=== PATIENT | male | born 1980 | race Caucasian/White ===

== ENCOUNTER 2016-11-29 23:58 | Inpatient (IN) | payer BC ==
--- NOTE | ~2016-11-29 | HP ---
Unit #: [id number] #: [id number] Patient: ASH BHATIA [id number] [place] [address] [id number] MR#: [id number] NAME: ASH BHATIA. ROOM: P256 Age: 36 Sex: M Admission Date: 11/29/2016 : 1980 Attending Physician: Lv Marinelli M.D. Admitting Physician: Lv Marinelli M.D. Primary Care Physician: Primary Care Physician No HISTORY AND PHYSICAL HISTORY OF PRESENT ILLNESS Ash is a 36-year-old male admitted to [address] [place] [address] on 11/29/2016 for visual hallucinations and suicidal ideation. He also has a history of meth and heroin use and is currently being prescribed Suboxone for treatment. PAST MEDICAL HISTORY None. PAST SURGICAL HISTORY None. SOCIAL HISTORY Smokes 1 pack of cigarettes daily. No alcohol use. Does report a history of heroin and meth use last week. Also, has been prescribed Suboxone. He is currently single and homeless. Occasionally he lives with his parents. FAMILY HISTORY Noncontributory. REVIEW OF SYSTEMS CONSTITUTIONAL: No fever or chills. HEENT: Denies any sore throat, ear pain or runny nose. CARDIOVASCULAR: Denies chest pain, irregular heart rhythm or palpitations. CHEST: Denies shortness of breath or cough. No hemoptysis. GASTROINTESTINAL: Denies nausea, vomiting, diarrhea or chronic constipation. ENDOCRINE: Denies history of increased thirst or urination. No recent significant weight loss or gain. GENITOURINARY: Denies dysuria, frequency, or hematuria. SKIN: Denies any rashes. HEMATOLOGIC: Denies history of increased bleeding or bruising. MUSCULOSKELETAL: Denies any hot, swollen joints. No generalized muscle pain. NEUROLOGIC: Denies problems with vision or speech. No frequent, severe headaches. No numbness, tingling or weakness in any extremities. Denies loss of bladder or bowel control. CURRENT MEDICATIONS Gabapentin. ALLERGIES No known drug allergies. Unit #: [id number] #: [id number] Patient: ASH BHATIA PHYSICAL EXAMINATION GENERAL: Alert, oriented, no acute distress. VITAL SIGNS: Blood pressure 116/65, heart rate 82, temperature 97.8. HEIGHT: 6 feet 2. WEIGHT: 200 pounds. SKIN: Warm, dry. No rashes or lesions, track bright, cuts, etc. HEENT: Normocephalic. TMs not viewed. Oronasal passages clear. Conjunctivae clear. PERRLA. EOM is intact. NECK: No lymphadenopathy or thyromegaly. HEART: Regular rate and rhythm. No murmur, gallop, or rub. LUNGS: Clear to auscultation bilaterally. ABDOMEN: Soft, nontender without palpable masses or hepatosplenomegaly. : Not assessed. EXTREMITIES: No evidence of cyanosis, clubbing, or edema. Moves all extremities independently without obvious deficit. NEUROLOGICAL: Grossly within normal limits. Cranial Nerves: II: Visual ozuna are intact. III, IV AND : Extraocular movements are intact. Pupils are equal, round and reactive to light. V: Facial sensation is grossly normal. VII: Facial movements and expression are normal. VIII: Auditory acuity grossly intact. IX, X: Uvula is midline. Phonation is normal. XI: Patient shrugs shoulders and turns head normally. XII: Tongue protrudes in the midline. Sensory and Motor Function: Sensory and motor sensation is grossly normal. Motor: moves all extremities well. Coordination: Gait is normal. Deep Tendon Reflexes: Intact. IMPRESSION Psychiatric admission. RECOMMENDATIONS PSYCHIATRIC: Per psychiatrist. MEDICAL: No contraindication to participate in this facility's activities. MEDICAL PROGNOSIS Good. MEDICAL CONDITION Stable. Dictated by... Michelle Quinonez TD: 11/30/2016 14:33 JOB #: [id number] Unit #: [id number] #: [id number] Patient: ASH BHATIA HISTORY AND PHYSICAL X ALESHA DUVAL APRN HISTORY AND PHYSICAL
--- NOTE | ~2016-11-29 | PN ---
Unit #: [id number] #: [id number] Patient: ASH BHATIA [id number] [facility] [address] [place] [address] [id number] MR#: [id number] NAME: ASH BHATIA. ROOM: P256 Age: 36 Sex: M Admission Date: 11/29/2016 : 1980 Attending Physician: Lv Marinelli M.D. Admitting Physician: Lv Marinelli M.D. Primary Care Physician: Primary Care Physician Maura CLARKE PROGRESS NOTES DATE OF SERVICE: 12/01/2016 DISCUSSION Ash Bhatia is a 36-year-old male, seen on 12/01/2016. The patient interviewed, chart reviewed, and obtained information from nursing staff. The patient is compliant and cooperative. The patient denied any hallucination or any side effects from medication and making progress, but still isolative and guarded. REVIEW OF SYSTEMS Complete review of systems unremarkable. MENTAL STATUS EXAMINATION General appearance, the patient is tall, well built. Attention span and concentration, fair. Oriented in place and person. Mood and affect were labile. Speech, regular rate. Thought process, goal directed. The patient denied any thoughts of harming self or others or any psychotic symptom. Recent and remote memory, poor. Insight and judgment, poor. DIAGNOSES Mood disorder, not otherwise specified. Methamphetamine abuse, moderate. ASSESSMENT AND PLAN Advised to continue with current medication and therapeutic protocol. We will monitor response to medication and make further adjustment of medication if needed. Dictated by... Sasha Lassiter/trina TD: 12/03/2016 06:12 JOB #: [id number] Unit #: [id number] #: [id number] Patient: ASH BHATIA [facility] PROGRESS NOTES X Lv Marinelli MD PROGRESS NOTE
--- NOTE | ~2016-11-29 | PA ---
Unit #: [id number] #: [id number] Patient: RAMONA BHATIA [id number] [place] [address] [id number] MR#: [id number] NAME: RAMONA BHATIA. ROOM: P256 Age: 36 Sex: M Admission Date: 11/29/2016 : 1980 Date of Assessment: 11/29/2016 Attending Physician: Lv Marinelli M.D. Admitting Physician: Lv Marinelli M.D. Primary Care Physician: Primary Care Physician No PSYCHIATRIC ASSESSMENT DATE OF SERVICE 11/29/2016. INFORMANT The patient reliability, fair; chart reliability, good. CHIEF COMPLAINT Methamphetamine use and paranoia. HISTORY OF PRESENT ILLNESS Mr. Aleman is a 36-year-old male, seen on 11/29/2016. The patient was compliant, cooperative, able to answer questions appropriately. The patient reported that he was feeling sad, depressed. The patient admitted using meth and opioids. The patient presented with suicidal ideation with a plan to take an overdose. The patient denied any homicidal ideation. Reported auditory hallucination, paranoia, anxiety. The patient reported last use of meth was a week ago. The patient reports that he is on Suboxone. The patient also has a history of substance abuse such as using opioids. The patient reported feel like losing his mind, feeling of sad and depressed, needing inpatient admission at this time for psychiatric stabilization. PAST PSYCHIATRIC HISTORY Remarkable for history of inpatient treatment in [place] in 2012. FAMILY HISTORY/SOCIAL HISTORY The patient's family psychiatric illness is unknown at this time. No known history of any abuse. MEDICAL HISTORY Unremarkable for any chronic medical illness. Musculoskeletal; muscle strength and tone, no atrophy or abnormal movement. Gait normal. MEDICATION HISTORY None. ALLERGIES No known drug allergies. SUBSTANCE ABUSE HISTORY The patient reported alcohol use, age of onset 14; marijuana, age of onset 14; crack cocaine, age of onset 18; LSD, age of onset 15; opioid, age of onset 28; amphetamine, age of onset 32. The patient reported no history Unit #: [id number] #: [id number] Patient: RAMONA BHATIA of any blackout, HIV, hepatitis, but history of withdrawal symptoms, history of IV drug use. The patient reported chills, sweats, muscle cramping, runny nose, irritability, restlessness, depressed mood, and tremors. REVIEW OF SYSTEMS Complete review of systems unremarkable. MENTAL STATUS EXAMINATION CONSTITUTIONAL: Measurement of vital signs; temperature 97.4, pulse 84, respirations 18, blood pressure 130/89, height 6 feet 2 inches, and weight 200 pounds. GENERAL APPEARANCE: The patient dressed casually. The patient did not show any facial deformity. MUSCULOSKELETAL: Please see above. PSYCHIATRIC EXAMINATION Description of speech; regular rate. Thought process coherent. Description of thought process, goal directed. Description of association, intact. Description of abnormal psychotic thinking; the patient denied any hallucination or delusions, but reported at the time of admission mood lability. Denied any suicidal or homicidal ideation. Description of the patient's judgment, concerning everyday activity, poor. Social situation, poor. Concerning psychiatric condition, poor. Complete mental status examination; oriented in time, place, and person. Recent and remote memory, fair. Attention span and concentration, fair. Language, able to name object, repeat phrases. Fund of knowledge, aware of current event, passive vocabulary intact. Mood and affect, sad and dysphoric. Insight and judgment, fair to poor. ASSETS AND LIABILITIES Assets, the patient is articulate and able to take care of his ADL. Liability; history of substance abuse. ADMITTING DIAGNOSES Psychiatric: Mood disorder, not otherwise specified, F32.9; methamphetamine use disorder, moderate to severe F15.20; opioid use disorder, severe, F11.20. Secondary diagnosis: Deferred. Medical diagnosis: None. Stressors: Psychosocial stressors. PSYCHIATRIC PLAN AND TREATMENT GOAL AND DISCHARGE PLAN 1. Advised to admit the patient on the inpatient unit. Provide safe, supportive, and structured environment. 2. Ordered labs; CBC, CMP, UA, and UDS. 3. The patient was started on detox protocol and detox monitoring. Monitor for self-harm. Treatment goal; to attain euthymic mood, gain insight into his problem, and learn coping skills. Discharge plan; plan to stabilize the patient and consider followup in outpatient program. ESTIMATED LENGTH OF STAY 5 to 7 days. Unit #: [id number] #: [id number] Patient: RAMONA BHATIA Dictated by... Sasha Lassiter/trina TD: 12/02/2016 08:41 JOB #: [id number] PSYCHIATRIC ASSESSMENT X Lv Marinelli MD PSYCHIATRIC ASSESSMENT
--- NOTE | ~2016-11-29 | DS ---
Unit #: [id number] #: [id number] Patient: RAMONA BHATIA [id number] [facility] [address] [place] [address] [id number] MR#: [id number] NAME: RAMONA BHATIA. ROOM: P256 Age: 36 Sex: M Admission Date: 11/29/2016 : 1980 Discharge Date: 12/02/2016 Attending Physician: Lv Marinelli M.D. Primary Care Physician: Primary Care Physician No DISCHARGE SUMMARY REASON FOR ADMISSION Depression and suicidal ideation. DIAGNOSTIC STUDIES LABORATORY RESULTS: Unremarkable. HOSPITAL COURSE The patient was admitted to the inpatient unit on 11/29/2016 and discharged on 12/02/2016. The patient was treated on the inpatient unit with group therapy, individual therapy, medication management, and structured milieu. The patient responded well with the above modalities of treatment. Subsequently, the patient was discharged with a plan to follow up in outpatient clinic. DISCHARGE MEDICATIONS Neurontin 300 mg t.i.d. for mood symptoms. DISCHARGE DIAGNOSES Psychiatric: 1. Mood disorder, not otherwise specified, F32.9. 2. Methamphetamine use disorder, moderate. 3. Opioid use disorder, severe. Secondary diagnosis: Deferred. Medical diagnosis: None. Stressors: Psychosocial stressors. DISCHARGE INSTRUCTIONS The patient is to follow up in outpatient clinic as per social work associate. CONDITION ON DISCHARGE The patient was pleasant and cooperative. Denied any psychotic symptom or any suicidal ideation. PROGNOSIS Guarded. DIET AND ACTIVITY As tolerated. Dictated by... Unit #: [id number] #: [id number] Patient: RAMONA BHATIA Sasha Lassiter/trina TD: 12/03/2016 18:27 JOB #: [id number] DISCHARGE SUMMARY X Lv Marinelli MD X DISCHARGE SUMMARY
[2016-12-01 13:36] LABS: THYROID STIMULATING HORMONE 0.08 uIU/ml (0.34-5.60)
[2016-12-01 13:43] LABS: FREE THYROXIN (T4) 1.01 ng/dL (0.58-1.64)
== END 2016-12-02 11:05 | disposition home or self-care (01) | DRG 885 ==
LOC: P2L 23:58
PROVIDERS: Psychiatry & Neurology Psychiatry
PROC: HZ2ZZZZ Detoxification Services for Substance Abuse Treatment (ICD-10-PCS; principal; 2016-11-29)
DX: F39 Unspecified mood [affective] disorder (principal); F11.20 Opioid dependence, uncomplicated; F15.20 Other stimulant dependence, uncomplicated; F32.9 Major depressive disorder, single episode, unspecified; F17.200 Nicotine dependence, unspecified, uncomplicated; Z59.0 Homelessness
CPT/HCPCS: 84439; 84443; 86592